=== PATIENT | female | born 1970 | race Caucasian/White ===

== ENCOUNTER 2018-11-15 15:39 | Emergency (ER) | payer OTHER, SELFPAY ==
--- NOTE | 2018-11-15 16:33 | RAD REPORT ---
EXAM DESCRIPTION: RAD - Foot Left 3 View - 11/15/2018 4:25 pm CLINICAL HISTORY: PAIN COMPARISON: No comparisons FINDINGS: No evidence of acute fracture or dislocation. Large plantar calcaneal spur and minimal pos terior calcaneal spur noted.
[2018-11-15] MEDS ORDERED: IBUPROFEN 400 MG TAB ONE (17:10)
--- NOTE | 2018-11-15 17:12 | EDPHYS ---
Physician Documentation [facility] Name: Lou Henley Age: 48 yrs Sex: Female : 1970 Arrival Date: 11/15/2018 Time: 15:41 Bed 10 Private MD: ED Physician Jovanny Garber HPI: 11/15 16:40 This 48 yrs old Female presents to ER via Ambulatory with complaints of Foot cp Pain. 16:40 The patient presents with pain, that is acute. The complaints affect the lateral aspect cp of left foot. Onset: The symptoms/episode began/occurred 2 week(s) ago. 16:40 Associated signs and symptoms: Pertinent negatives calf tenderness, numbness, weakness. cp Patient denies injury to foot. 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 - Social history:: Smoking status: Patient/guardian denies using tobacco. - Ebola Screening: : No symptoms or risks identified at this time. ROS: 16:45 Constitutional: Negative for body aches, chills, fever, poor PO intake. cp 16:45 Respiratory: Negative for cough, shortness of breath, wheezing. cp 16:45 Abdomen/GI: Negative for abdominal pain, nausea, vomiting, and diarrhea. 16:45 MS/extremity: Positive for pain, tenderness, of the lateral aspect of left foot, Negative for decreased range of motion, deformity, paresthesias. 16:45 Skin: Negative for erythema. 16:45 All other systems are negative. Exam: 16:50 Constitutional: The patient appears in no acute distress, alert, awake, well developed, cp well nourished, uncomfortable. 16:50 Head/Face: Normocephalic, atraumatic. cp 16:50 Eyes: Periorbital structures: appear normal, Conjunctiva: normal, Lids and lashes: appear normal, bilaterally. 16:50 ENT: External ear(s): are unremarkable, Nose: is normal, Mouth: Lips: moist, Posterior pharynx: Airway: normal. 16:50 Chest/axilla: Inspection: normal. 16:50 Cardiovascular: Rate: normal. 16:50 Respiratory: the patient does not display signs of respiratory distress, Respirations: normal, no use of accessory muscles, no retractions, no splinting, no tachypnea. 16:50 Abdomen/GI: Inspection: abdomen appears normal. 16:50 Back: pain, is absent, ROM is normal. 16:50 Musculoskeletal/extremity: Extremities: grossly normal except: noted in the lateral aspect of left foot: tenderness, There is no evidence of deformity, Perfusion: the extremity is normally perfused throughout, Sensation intact. 16:50 Skin: cellulitis, is not appreciated, no rash present. Vital Signs: 16:04 BP 156 / 82; Pulse 88; Resp 16; Temp 98.1; Pulse Ox 100% on R/A; Pain 8/10; hb 17:33 BP 140 / 78; Pulse 70; Resp 18; Pulse Ox 100% on R/A; Pain 2/10; mg2 MDM: 16:28 Patient medically screened. cp 17:00 Differential diagnosis: closed fracture, sprain. cp 17:10 Data reviewed: vital signs, nurses notes, radiologic studies, plain films. cp 17:10 Test interpretation: by ED physician or midlevel provider: plain radiologic studies. cp Counseling: I had a detailed discussion with the patient and/or guardian regarding: the historical points, exam findings, and any diagnostic results supporting the discharge/admit diagnosis, radiology results, to return to the emergency department if symptoms worsen or persist or if there are any questions or concerns that arise at home. Response to treatment: the patient's symptoms have mildly improved after treatment, and as a result, I will discharge patient. 03 16:03 Order name: Foot Left 3 View XRAY hb 11/15 17:06 Order name: Walking boot; Complete Time: 17:09 cp 11/15 17:06 Order name: Crutches; Complete Time: 17:09 cp Administered Medications: 17:09 Drug: Ibuprofen 800 mg Route: PO; mg2 17:33 Follow up: Response: No adverse reaction; Medication administered at discharge. mg2 Disposition: 18:00 Chart complete. cp Disposition: 11/15/18 17:12 Discharged to Home. Impression: Pain in left foot. - Condition is Stable. - Discharge Instructions: Foot Pain. - Prescriptions for Ibuprofen 800 mg Oral Tablet - take 1 tablet by ORAL route every 8 hours As needed take with food; 30 tablet. - Medication Reconciliation Form, Thank You Letter, Antibiotic Education, Prescription Opioid Use form. - Follow up: Private Physician; When: 1 week; Reason: Recheck today's complaints. - Problem is new. - Symptoms have improved. Addendum: 11/19/2018 07:34 Co-signature as Attending Physician, Jovanny Garber MD. r n Signatures: Dispatcher [employer] EDMS Jovanny Garber MD MD rn Rafat Dawson PA PA cp Debbie Woods RN RN David Zepeda RN RN mg2 Corrections: (The following items were deleted from the chart) 11/15 17:34 17:12 11/15/2018 17:12 Discharged to Home. Impression: Pain in left foot. Condition is mg2 Stable. Forms are Medication Reconciliation Form, Thank You Letter, Antibiotic Education, Prescription Opioid Use. Follow up: Private Physician; When: 1 week; Reason: Recheck today's complaints. Problem is new. Symptoms have improved. cp
--- NOTE | 2018-11-15 17:12 | ER ---
Nurse's Notes [facility] Name: Lou Henley Age: 48 yrs Sex: Female : 1970 Arrival Date: 11/15/2018 Time: 15:41 Bed 10 Private MD: Diagnosis: Pain in left foot Presentation: 11/15 16:03 Presenting complaint: Left foot pain x 2 weeks. Denies injury. Transition of care: hb patient was not received from another setting of care. Onset of symptoms is unknown. Risk Assessment: Do you want to hurt yourself or someone else? Patient reports no desire to harm self or others. Care prior to arrival: None. 16:03 Method Of Arrival: Ambulatory hb 16:03 Acuity: MICHI 4 hb 17:34 Initial Sepsis Screen: Does the patient meet any 2 criteria? No. Patient's initial mg2 sepsis screen is negative. Does the patient have a suspected source of infection? No. Patient's initial sepsis screen is negative. Triage Assessment: 17:34 General: Appears in no apparent distress. comfortable, Behavior is calm, cooperative. 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 - Social history:: Smoking status: Patient/guardian denies using tobacco. - Ebola Screening: : No symptoms or risks identified at this time. Screenin:32 Abuse screen: Denies threats or abuse. Denies injuries from another. Nutritional mg2 screening: No deficits noted. Tuberculosis screening: No symptoms or risk factors identified. Fall Risk Ambulatory Aid- Crutches/Cane/Walker (15 pts). Assessment: 17:32 Pain: Complains of pain in left foot. Musculoskeletal: Circulation, motion, and mg2 sensation intact. Capillary refill < 3 seconds, Reports pain in left foot. Vital Signs: 16:04 BP 156 / 82; Pulse 88; Resp 16; Temp 98.1; Pulse Ox 100% on R/A; Pain 8/10; hb 17:33 BP 140 / 78; Pulse 70; Resp 18; Pulse Ox 100% on R/A; Pain 2/10; mg2 ED Course: 15:41 Patient arrived in ED. as 16:04 Triage completed. hb 16:05 Arm band placed on left wrist. hb 16:26 Foot Left 3 View XRAY In Process Unspecified. EDMS 16:28 Rafat Dawson PA is PHCP. cp 16:28 Jovanny Garber MD is Attending Physician. cp 17:32 No provider procedures requiring assistance completed. Patient did not have IV access mg2 during this emergency room visit. Crutch training done. Ortho shoe applied to left foot. 17:34 Patient has correct armband on for positive identification. mg2 Administered Medications: 17:09 Drug: Ibuprofen 800 mg Route: PO; mg2 17:33 Follow up: Response: No adverse reaction; Medication administered at discharge. mg2 Outcome: 17:12 Discharge ordered by . cp 17:33 Discharged to home ambulatory, with crutches. mg2 17:33 Condition: stable 17:33 Discharge instructions given to patient, Instructed on discharge instructions, follow up and referral plans. crutch walking, Demonstrated understanding of instructions, follow-up care, medications, crutch walking, Prescriptions given X 1. 17:34 Patient left the ED. mg2 Signatures: Dispatcher [employer] EDOK Viky Saleh as Zainab Henriquez, RN RN aa5 Rafat Dawson PA PA cp Debbie Woods, VIVINA RN David Zepeda RN RN mg2 Corrections: (The following items were deleted from the chart) 17:33 16:20 Zainab Henriquez, RN is Primary Nurse. aa5 aa5
== END 2018-11-15 17:34 | disposition home or self-care (01) ==
LOC: ER 15:39
DX: M79.672 Pain in left foot (principal); M77.32 Calcaneal spur, left foot; Z88.5 Allergy status to narcotic agent; Z88.7 Allergy status to serum and vaccine
CPT/HCPCS: 99284